=== PATIENT | male | born 1975 | race Hispanic/Latino ===

== ENCOUNTER 2021-07-31 10:56 | Emergency (ER) | payer OTHER ==
[~2021-07-31] VITALS: Ht 177.8 cm; Wt 99.8 kg
[2021-07-31 10:58] VITALS: BP 147/101
[2021-07-31] MEDS ORDERED: KETOROLAC 60 MG VIAL (30MG/ML) IM STA (12:40)
[2021-07-31] MEDS ORDERED: METH4TAB3 PO (13:24)
[2021-07-31 14:17] VITALS: BP 138/78
== END 2021-07-31 14:18 | disposition home or self-care (01) ==
LOC: EDH 10:56
DX: M10.9 Gout, unspecified (principal); I10 Essential (primary) hypertension; Z79.1 Long term (current) use of non-steroidal anti-inflammatories (NSAID); Z79.52 Long term (current) use of systemic steroids
CPT/HCPCS: 73610; 96372; 99283; J1885

== ENCOUNTER 2025-04-23 10:09 | Emergency (ER) | payer BC ==
[~2025-04-23] VITALS: Ht 177.8 cm; Wt 86.2 kg
[~2025-04-23 10:09] MED LIST: ALBU18HF7 IH; ALLO100T PO; AMLO-257 PO; AMOX-426 PO; BENZ-39 PO; COLC0.6T73 PO; EMPA10TA PO; SILD20TA14 PO
[2025-04-23 10:42] VITALS: BP 127/85; PULSE 117; RESP 17; TEMP 99; O2SAT 100
[2025-04-23] MEDS: HYDROcodone/APAP 5/325 1 TAB TABLET PO ONE (10:47)
--- NOTE | 2025-04-23 10:56 | HMCIMG ---
CT CHEST WITHOUT CONTRAST. CT ABDOMEN WITHOUT CONTRAST. INDICATION: Left upper rib pain after fall TECHNIQUE: Routine 5 mm thick axial images were acquired from the thoracic inlet through the abdomen without contrast. CT was performed with one or more of the following dose reduction techniques: Automated exposure control, adjustment of the mA and/or kV according to patient size, or use of iterative reconstruction technique. COMPARISON: None FINDINGS: CT CHEST: Median sternotomy wires are in appropriate alignment, and associated/expected mild anterior mediastinal swelling given patient's recent surgery. No evidence for organized fluid collection. The heart size is normal. No pericardial effusion noted. No evidence for thoracic aortic aneurysm.. The trachea and airways are patent. No evidence for pulmonary nodule, consolidation, cavitary lesion, or other abnormal pulmonary parenchymal opacity. Small left pleural effusion. No axillary, hilar, or mediastinal lymphadenopathy. No evidence for pneumothorax. Tip of right PICC within the SVC. CT ABDOMEN: The liver is normal in size and smooth in contour without biliary duct dilation. The spleen is normal in size.. The gallbladder appears normal. The pancreas appears normal without pancreatic duct dilation. The adrenal glands appear normal. Both kidneys appear normal. . No evidence for intra-abdominal free air or free or organized fluid collection. No aortic aneurysmal dilation.. Visible osseous structures are intact. IMPRESSION: Small left pleural effusion without left rib fracture. Additional minor findings, postsurgical changes, and pertinent negatives as reported.
[2025-04-23] MEDS ORDERED: HYDR-4060 PO (11:26)
--- NOTE | 2025-04-23 11:26 | ERN ---
General Chief Complaint: Mechanical Fall Stated Complaint: MECHANICAL FALL Time Seen by MD: 10:11 History of Present Illness Initial Comments 49-year-old male brought in by EMS status post fall. Patient had a CABG three weeks ago at this facility. He is working in a chest binder. This morning he was using the restroom, and when he went down to the toilet he slipped and fell onto his left side. He reports some pain to the left flank area. He has minimal tenderness no obvious bruising. He did not hit his head. He has no other signs of trauma. He wanted to make sure that the recent surgery/sternotomy wounds were not injured. Of note, the patient reports that he has been having a flare-up in his left great toe and left ankle of gout. He has this consistently. He is taking colchicine but he reports some pain at this time which he would like addressed. Allergies: Coded Allergies: No Known Drug Allergies (Unverified Allergy, Unknown, 07/31/21) Home Meds Reported Medications Colchicine (Colchicine) 0.6 Mg Tablet, 1 TAB PO DAILY 04/09/25 Albuterol Sulfate (Ventolin Hfa) 90 Mcg Hfa.aer.ad, 2 PUFF IH Q4HPRN PRN for wheezing for 30 Days, #18 GM 0 Refills 03/28/25 Amoxicillin/Potassium Clav (Augmentin 500-125 Tablet) 500 Mg-125 Mg Tablet, 1 TAB PO BID for 10 Days, #20 TAB 0 Refills 03/28/25 Benzonatate (Tessalon Perles) 100 Mg Cap, 2 CAP PO TID for cough for 10 Days, #30 CAP 0 Refills 03/28/25 Empagliflozin (Jardiance) 10 Mg Tablet, 1 TAB PO DAILY for 30 Days, #30 TAB 0 Refills 03/28/25 Allopurinol (Allopurinol) 100 Mg Tablet, 2 TAB PO DAILY for 30 Days, #30 TAB 0 Refills 03/28/25 Sildenafil Citrate (Sildenafil) 20 Mg Tablet, 2 TAB PO DAILY for 30 Days, #60 TAB 0 Refills 03/28/25 Amlodipine Besylate (Amlodipine Besylate) 5 Mg Tablet, 1 TAB PO DAILY for 30 Days, #30 TAB 0 Refills 03/28/25 Past Medical History Past Medical History: Hypertension, Kidney Infection, Renal Failure Medical History Other: GOUT, CKD4 Past Surgical History: CABG, None Surgical History Other: No previous surgery Family History Family History: Negative Social History Social History: Negative, Lives with family ROS Dictation CONSTITUTIONAL: No chills, no fever, no weakness, no diaphoresis, no malaise. HEAD/FACE: No signs of trauma. EENT: No eye pain, no blurred vision, no tearing, no double vision, no ear pain, no ear discharge, no nose pain, no nasal congestion, no throat pain, no throat swelling, no mouth pain. RESPIRATORY: No cough, no orthopnea, no SOB, no stridor, no wheezing. CARDIOVASCULAR: No chest pain, no edema, no palpitations, no syncope. GASTROINTESTINAL/ABDOMINAL: No abdominal pain, no constipation, no diarrhea, no nausea, no vomiting. GENITOURINARY: No abnormal discharge, no dysuria, no frequent urination, no hematuria. No complaints of pain in the genitals. MUSCULOSKELETAL: No back pain, no gout, no joint pain, no joint swelling, no muscle pain, no muscle stiffness, no neck pain. INTEGUMENTARY: No change in color, no change in hair/nails, no dryness, no lesion, no lumps, no rash. NEUROLOGICAL/PSYCH: No anxiety, not depressed, no emotional problem, no headache, no numbness, no pre-existing deficit, no history of seizures, no tremors, no weakness. HEMATOLOGIC/LYMPHATIC: Not anemic, no history of blood clots, no apparent bleeding, no bruising, glands not swollen. All Systems Negative, Except as Noted. Physical Exam Physical Exam Dictation VITAL SIGNS: Reviewed. GENERAL APPEARANCE: Alert, oriented x3, no acute distress, obese. HEAD AND FACE: Non-traumatic. EYES: PERRL, pink conjunctivas, eyelid no trauma, anterior chamber clear. EARS: Pinnas intact and no signs of trauma or erythema. Ear canals clear and no discharge. TMs no erythema. NOSE: No discharge, no bleeding. OROPHARYNX: Mouth normal, teeth no caries, tongue pink. Pharynx clear, no erythema. Tonsils no exudates, no abscesses noted. Mucous membrane moist. NECK: Supple, non-tender, no thyromegaly, no masses, no JVD, no bruits. BREAST: Deferred. CHEST: Sternotomy scar intact, no obvious major abnormalities lung sounds are clear. LUNGS: Clear, well-ventilated, symmetric, no rales, no wheezing, no rhonchi, no stridor, good breath sounds bilaterally. HEART: Regular rate, regular rhythm, no murmur, no gallops. VASCULAR: No peripheral edema. ABDOMEN: Soft, positive bowel sounds, nondistended, no guarding, nontender, no rebound, no masses no hepatomegaly, no splenomegaly, no Stevens's sign, no hernias. RECTAL: Deferred. GENITAL: Deferred. NEUROLOGICAL: Normal speech, gross motor function intact, gross sensory function intact. MUSCULOSKELETAL: Neck nontender, full range of motion, back nontender, full range of motion. EXTREMITIES: Nontender, full range of motion. SKIN: Color pink, dry, no turgor, no rash, no lacerations, no abrasions, no contusions. LYMPHATICS: Deferred. [facility] CC: Chest wall pain status post fall status post sternotomy Historian: Patient Comorbidities: Recent sternotomy, CAD, gout, hypertension, other Vital signs: Stable, remained stable here in the ER. No labs indicated CT of the chest and abdomen without contrast shows no left rib fractures no major abnormalities sternotomy scar is intact. Treatment in ED: [place] for pain Regarding the trauma/fall no significant injuries. Soft tissue in nature. Patient is safe for discharge home. Patient does have a get flare-up. We will avoid NSAIDs since the recent surgery. We will discharge with a prescription for [place] tabs to use as needed. Patient has a good follow up as an outpatient. We will DC. Patient is agreeable. ED Course Orders Procedure Category Date Status Time Hydrocodone/Apap PHA 04/23/25 Complete 5/325 ([place] 5/325mg) 10:30 Ct Chest Abdomen W/O CT 04/23/25 Resulted Contrast 10:11 Current Medications Medications (Trade) Dose Ordered Sig/Felix Route PRN Reason Start Time Stop Time Status Last Admin Dose Admin Acetaminophen/ Hydrocodone Bitart (NORco 5/325MG) 2 tab ONCE ONCE PO 04/23/25 10:30 04/23/25 10:31 DC 04/23/25 10:47 Vital Signs Date Time Temp Pulse Resp B/P (MAP) Pulse Ox O2 Delivery O2 Flow Rate FiO2 04/23/25 10:42 99.0 117 17 127/85 100 Room Air* 0 21 04/23/25 10:21 99.0 116 17 131/107 99 Room Air* 0 21 04/23/25 10:10 99.3 98 16 131/107 118 Room Air 0 DX & DISP Disposition: Discharge Departure Impression: Primary Impression: Chest trauma Additional Impressions: Exacerbation of gout, Chest wall pain Condition: Stable Scripts Hydrocodone/Acetaminophen (Hydrocodon-Acetaminophen 5-325) 5 Mg-325 Mg Tablet 1 TAB PO TIDP PRN for pain for 10 Days, #30 TAB 0 Refills Prov: VALDEMAR HIGHTOWER DO 04/23/25 Additional Instructions: The CT scan of your chest and abdomen does not show any new injuries or fractures. The sternotomy wires are intact. The PICC line is intact. There are no new fractures. Regarding the gout, continue with colchicine. I have prescribed [place] tabs to use as needed for pain. Please follow up with your primary doctor for the gout. Follow up with your medical numerical control operator as already scheduled. Return to the emergency department as needed. Referrals: TOÑITO AYOUB MD (PCP) VALDEMAR HIGHTOWER DO Apr 23, 2025 11:26
== END 2025-04-23 11:42 | disposition home or self-care (01) ==
LOC: EDH 10:09
DX: S29.9XXA Unspecified injury of thorax, initial encounter (principal); M10.072 Idiopathic gout, left ankle and foot; I12.9 Hypertensive chronic kidney disease with stage 1 through stage 4 chronic kidney disease, or unspecified chronic kidney disease; N18.4 Chronic kidney disease, stage 4 (severe); I25.10 Atherosclerotic heart disease of native coronary artery without angina pectoris; Z79.84 Long term (current) use of oral hypoglycemic drugs; Z79.899 Other long term (current) drug therapy; Z95.1 Presence of aortocoronary bypass graft; Z98.890 Other specified postprocedural states; W18.11XA Fall from or off toilet without subsequent striking against object, initial encounter; Y93.89 Activity, other specified; Y92.89 Other specified places as the place of occurrence of the external cause; Y99.8 Other external cause status
CPT/HCPCS: 71250; 74150; 99284